=== PATIENT | male | born 2000 | race African-American/Black ===

== ENCOUNTER 2021-07-04 12:30 | Outpatient (RCR) | payer OTHER, SELFPAY ==
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
--- NOTE | 2021-07-19 14:04 | PCPTNOTE ---
pt did not show for today's reeval appt, then called 20 min after appt time to cancel due to family emergency;
--- NOTE | 2021-08-06 13:17 | PCPTNOTE ---
PHYSICAL THERAPY DISCHARGE 08-06-21 Attending Provider: Bharti Bowers MD Patient:Brendon Vaughan Date of :2000 Brendon has not returned for any further treatments since 07/04/2021, therefore he will be discharged at this time. He received 3 PT sessions, from June 26 to , for the diagnosis of acute low back pain. He then stopped attending therapy. Goals were not assessed. Thank you for referring Mr. Vaughan to [facility]. Please review, sign, date and return this discharge summary NERY. I have been updated about the patient's current status and I agree with discharge from the above service at this time. Referring Physician Date
== END 2021-08-06 15:39 | disposition home or self-care (01) ==
LOC: ANHPT 12:30
PROVIDERS: PCP Pediatrics; Referring Provider Internal Medicine; Visit Provider Internal Medicine
DX: M54.50 Low back pain, unspecified (principal)
CPT/HCPCS: 97014; 97110; 97161; G0283